=== PATIENT | female | born 1950 | race Caucasian/White ===

== ENCOUNTER 2018-07-01 08:19 | Observation (INO) ==
[2018-07-01] MEDS ORDERED: Chlorhexidine Gluconate 2% 1 Pack (2 Cloths) TOPICAL SCH (08:45)
[2018-07-01] MEDS ORDERED: Metoprolol Tartrate 25 MG Tablet PO SCH (08:45)
[2018-07-01] MEDS ORDERED: Sodium Chlor 0.9% Inj 500 ML IV.SIG SCH (09:00)
[2018-07-01] MEDS ORDERED: Heparin - SQ 10,000 UNITS/ML Vial SQ ONE (09:00)
[2018-07-01] MEDS ORDERED: Lidocaine 1%/Epinephrine 1:100,000 Inj 50 ML Vial ONE (09:35)
[2018-07-01] MEDS ORDERED: Phenylephrine/NS 1000 MCG/10ML Syringe IV.PUSH ONE (12:00)
[2018-07-01] MEDS ORDERED: Neostigmine Inj 5 MG/5 ML Syringe IV.PUSH ONE (12:00)
[2018-07-01] MEDS ORDERED: Lidocaine PF 1% Inj 5 ML Syringe INFILTRATN ONE (12:00)
[2018-07-01] MEDS ORDERED: Glycopyrrolate Inj 1 MG/5 ML Syringe IV.PUSH ONE (12:00)
[2018-07-01] MEDS ORDERED: Sugammadex Inj 200 MG/2 ML Vial IV.PUSH ONE (12:51)
[2018-07-01] MEDS ORDERED: fentaNYL Citrate Inj 100 MCG/2 ML Ampul ONE ×2 (12:51→17:08)
[2018-07-01] MEDS ORDERED: Famotidine PF Inj 20 MG/2 ML Vial ONE (12:51)
[2018-07-01] MEDS ORDERED: LORazepam 0.5 MG Tablet PO PRN (16:48)
[2018-07-01] MEDS ORDERED: Dextrose 50% in Water 50 ML Vial IV.PUSH PRN (16:57)
[2018-07-01] MEDS ORDERED: KCL 20 mEq/D5W/NaCl 0.45% Inj 1,000 ML ONE (17:13)
[2018-07-01] MEDS: KCL 20 mEq/D5W/NaCl 0.45% Inj 1,000 ML IV.CONT SCH (17:55)
[2018-07-01] MEDS: Insulin NovoLIN Regular Correctional Sugar Inj SQ SCH ×2 (18:46→23:04)
[2018-07-01] MEDS: Ketorolac Inj 30 MG/ML (IVP) Vial IV.PUSH SCH (22:58)
[2018-07-02 05:14] VITALS: RESP 18
[2018-07-02] MEDS: Ketorolac Inj 30 MG/ML (IVP) Vial IV.PUSH SCH (05:20)
[2018-07-02] MEDS: KCL 20 mEq/D5W/NaCl 0.45% Inj 1,000 ML IV.CONT SCH (05:21)
[2018-07-02] MEDS: Insulin NovoLIN Regular Correctional Sugar Inj SQ SCH (05:24)
[2018-07-02 07:45] LABS: Hematocrit 45.3 % (35.0-46.0); Hemoglobin 15.5 gm/dL (11.6-15.3); Lymph # (Auto) 0.7 th/mm3 (1.0-4.8); Lymph % (Auto) 7.3 % (9.0-44.0); Mean Corpuscular HGB Conc 34.3 % (32.0-36.0); Mean Corpuscular Hemoglobin 30.1 pg (27.0-34.0); Mean Corpuscular Volume 87.8 fL (80.0-100.0); Mean Platelet Volume 9.2 fL (7.0-11.0); Mono # (Auto) 0.6 th/mm3 (0.0-0.9); Mono % (Auto) 5.6 % (0.0-8.0); Neut # (Auto) 8.8 th/mm3 (1.8-7.7); Neut % (Auto) 87.1 % (16.0-70.0); Platelet Count 158 th/mm3 (150-450); Red Blood Count 5.15 mil/mm3 (4.00-5.30); Red Cell Distribution Width 14.3 % (11.6-17.2); White Blood Count 10.1 th/mm3 (4.0-11.0)
--- NOTE | 2018-07-02 07:55 | MP ---
cc: Fatoumata Yusuf MD, Patricia I MD Milo, Heraldo DATE OF OPERATION: 07/01/2018 PREOPERATIVE DIAGNOSES: 1. Postmenopausal bleeding. 2. Thickened endometrial stripe. 3. Atypical cells suspicious for malignancy. POSTOPERATIVE DIAGNOSES: 1. Postmenopausal bleeding. 2. Thickened endometrial stripe. 3. Atypical cells suspicious for malignancy. 4. Bilateral enlarged pelvic lymph nodes. PROCEDURE: Robotic-assisted laparoscopic hysterectomy, bilateral salpingo-oophorectomy, bilateral pelvic excisional lymph node biopsies. SURGEON: Fatoumata Yusuf MD. RIGGING SLINGER: Shelly junior administrative assistant. ANESTHESIA: General endotracheal anesthesia. ESTIMATED BLOOD LOSS: 200 mL. URINE OUTPUT: 200 mL. IV FLUIDS: 2000 mL. HISTORY: A 68-year-old female with postmenopausal bleeding of uncertain duration, found on imaging to have a prominent uterus with a thickened endometrial stripe. Biopsy showed highly atypical cells suspicious for malignancy arising from the endometrium. A Pap smear was normal. She was counseled regarding these findings and was in favor of definitive hysterectomy. She is seen again in the preoperative holding area where the findings are again discussed. Recommendations are reviewed. She expressed good understanding and would like to move forward with surgery. FINDINGS: The uterus was sounded to 9 cm, was symmetrically slightly prominent, grossly suggestive of adenomyosis, possible leiomyomas. The tubes were status post tubal ligation. The ovaries grossly appeared normal. On each side in the pelvis, there was a very prominent lymph node approximately 3 cm in size overlying the external iliac artery and vein on the left. Similarly, approximately 3 cm isolated enlarged lymph node overlying the iliac veins on the right side. The remainder of the lymphatics were visibly and palpably normal. In the pelvis, no overtly enlarged lymphatics in the paraaortic region. The uterus, once removed, showed low-grade tumor. It was uncertain if there was any myometrial invasion. In discussion with Dr. Ragland in pathology, she felt that if it were invasive it may just be a couple of millimeters, certainly less than fci in the myometrium and less than 1/3 of the myometrium and on final pathology analysis would determine whether or not there is actually any invasion at all. There is no cervical extension. DESCRIPTION OF PROCEDURE: She was taken to the operating room and placed in dorsal lithotomy position, after general endotracheal anesthesia was administered. A timeout was undertaken. She was identified by site recognition and hospital ID bracelet and the proposed procedure was reviewed and confirmed. She was carefully positioned in padded Young stirrups. Her arms were padded and secured to the sides. She was further secured to the operating table with egg crate padding and tape in a cross chest [id number] fashion. All sites noted to be properly aligned with no malalignment or pressure points. She was prepped and draped in usual sterile fashion and placed in lithotomy position. The cervix grasped. Uterine cavity sounded. Cervix dilated. Standard VCare manipulator inserted and secured in usual fashion. Ovalle catheter placed in the bladder. She was turned to the low lithotomy position. Change of sterile gloves was undertaken and we confirmed that an orogastric tube in the stomach on suction. With manual elevation of the abdominal wall and direct laparoscopic visualization, 5 mm cannula introduced into the left upper quadrant. Carbon dioxide gas was insufflated and an atraumatic entry was confirmed. Under direct laparoscopic visualization, a 12 mm cannula placed in the midline of the umbilicus, 8 mm cannula was placed in right upper quadrant and left lateral quadrant. The original 5 mm cannula exchanged for an 8 mm cannula. She was placed in Trendelenburg position. Peritoneal washings were obtained for cytology. The anatomy was surveyed with findings as described above. There was no evidence of peritoneal implants. The small bowel was folded back on its mesenteric root and 3 Ray-Charlotte sponges were placed around the root of the small bowel mesentery to hold it in position. The robotic system was brought into the operative field, attached in the usual fashion. Monopolar scissors, fenestrated bipolar forceps, and ProGrasp manipulators were placed in arms #1, 2, and 3 respectively and I took my place at the surgeon's console. The right round ligament was isolated, cauterized, transected. The anterior and posterior leafs of the broad ligament were opened. The right ureter was identified. The right infundibulopelvic ligament was isolated. The intervening peritoneum was opened. The infundibulopelvic ligament was isolated to the level of the pelvic brim where it was cauterized and transected. Posterior peritoneum opened along the right side of the uterus and cervix. The right vesicouterine peritoneum dissected off the lower uterine segment and cervix. The right uterine vessels were skeletonized and some bleeding was encountered, which was suppressed with cautery to the uterine vessel and then a Ray-Charlotte was placed for pressure and attention was directed toward the left side. The left round ligament was isolated, cauterized ,and transected. The anterior and posterior leaves of the broad ligament were opened. Adhesions were taken down to mobilize the colon, which was attached to the left pelvic sidewall. The left ureter was identified. The left infundibulopelvic ligament was isolated. The intervening peritoneum was opened. The infundibulopelvic ligament was isolated to the level of the pelvic brim where it was cauterized and transected. Posterior peritoneum opened along the left side of the uterus and cervix and the left vesicouterine peritoneum was dissected off the lower uterine segment and cervix and left uterine vessels were skeletonized. Uterine vessels were now cauterized and transected as were the cardinal, paracervical, and uterosacral ligaments thereby freeing the attachments along the left side of the uterus and cervix. Attention was redirected toward the right side. Pack was removed. Bleeding had ceased. The uterine vessels were further cauterized and transected as were the cardinal, paracervical, and uterosacral ligaments thereby freeing the attachments along the right side of the uterus and cervix. Circumferential colpotomy was performed the cervix from the upper vagina. The specimen was withdrawn transvaginally which included uterus, cervix, bilateral tubes and ovaries. A pneumo-occluder balloon was placed in the vagina to maintain pneumoperitoneum. Instruments 1 and 3 exchanged for needle drivers as a #0 Vicryl suture was introduced. Vaginal cuff was closed starting at the left corner with full-thickness closure, incorporating the posterior peritoneum and uterosacral ligament tied via instrument tie. The closure was held on countertraction as a running full thickness continuous closure was carried across the vaginal apex to the contralateral corner, were it was similarly fixed, secured, and tied via instrument tie. The needle was cut and removed. Prominent lymph node on each side of the pelvis were noted that clearly looked abnormal. Dissection was first started on the left side where the left vesicle and obturator spaces were opened. The single prominent lymph node (or conglomerated group of lymph nodes) were removed with bipolar cautery and sharp dissection circumferentially and this lymph node was placed on a Ray-Charlotte sponge in the right pericolic gutter for later retrieval. The remainder of the lymphatic basin was inspected and with no other abnormality detected. Attention was directed toward the right side were similarly overlying the external iliac artery and vein was a prominent lymph node or group of lymph nodes. The paravesical and obturator spaces were opened. Bipolar cautery and sharp dissection was used to circumferentially remove these lymph nodes which were placed in the right pericolic gutter for later retrieval. The remainder of the lymphatic basin was inspected and palpated. No other abnormalities detected. The periaortic region was inspected with no abnormalities detected. The preliminary pathology came back showing a low-grade tumor that had either minimal myometrial invasion or absent myometrial invasion such that the markedly abnormal appearing lymph nodes are of uncertain etiology, could be chronic reactive in nature. Nevertheless, they were markedly abnormal and required removal, but it was felt that further lymphadenectomy would be associated with morbidity that exceeded benefit giving the preliminary pathology findings. The integrity of the bladder was confirmed by filling the bladder with saline dyed with methylene blue. It distended nicely under pressure. There were no thin areas. Certainly no extravasation of the dye. There was a good margin between the bladder edge and the vaginal cuff suture line. Good peristalsis of ureters bilaterally. The neurovascular structures were intact in the pelvic sidewalls and good hemostasis. The pelvis was thoroughly irrigated. To assist and continued hemostasis, hemostatic Man powder was placed across the vaginal cuff and pelvic lymph node dissection bed. It was felt that all reasonable surgical objectives had been completed. The robotic instruments were removed. The robotic system was disengaged from the operative field. I reentered the bedside under sterile condition. An EndoCatch bag was used to capture the lymph nodes which were into right and left for permanent histopathologic analysis. Next, each of the 3 Ray-Charlotte sponges that were placed in the peritoneal cavity were isolated. They were removed individually through the 12 mm cannula, inspected, and noted to be removed in their entirety. Inspection of the peritoneal cavity confirmed no remaining foreign objects. Preliminary counts were correct. The 12 mm fascial defect was closed with #0 Vicryl sutures interrupted using a needle fascial closure apparatus. The remainder of the cannulas were withdrawn. Carbon dioxide gas was removed from the peritoneal cavity. Then 3-0 Vicryl subcutaneous, 3-0 Vicryl subcuticular, and Steri-Strips were used to close these incisions. She was returned to dorsal lithotomy position. Pelvic exam confirmed the vaginal cuff was well supported and hemostatic. There were no vaginal lacerations. No remaining foreign objects in the vagina and the remainder of the Man hemostatic powder was placed across the vaginal cuff. Final counts were correct. She was returned to dorsal supine position and was pending reversal of anesthesia, when I left the operating room to precede her to the postanesthesia care unit. MD NAYELI Kitchen/faina , 06:55 AM , 07:13 AM
--- NOTE | 2018-07-02 07:58 | MD ---
cc: Fatoumata Yusuf MD, Patricia I MD Milo, Heraldo DATE OF DISCHARGE: 07/02/2018 PROCEDURE: 07/01/2018, robotic-assisted laparoscopic hysterectomy, bilateral salpingo-oophorectomy, bilateral excisional pelvic lymph node biopsies. HOSPITAL COURSE: She did well in the early postop period,remained hemodynamically stable, tolerating oral intake. Ovalle catheter removed pending voiding. In's and out's are 3650/[id number]. Labs are pending. PHYSICAL EXAMINATION: VITAL SIGNS: Afebrile, pulse 79-98, respirations 16-18, blood pressure 124-144/70-85, pulse 89-104, pulse oxygen saturation greater than or equal to 92% while asleep, 93% while awake. GENERAL: Somnolent, but alert. LUNGS: Clear but there is some mild basilar rales. CARDIOVASCULAR: Regular rate and rhythm. ABDOMEN: Soft. Incision clean and dry. GYNECOLOGIC: No bleeding. EXTREMITIES: Nontender. ASSESSMENT: Postoperative day number 1, doing well in the early postoperative period. Findings at the time of surgery and preliminary pathology discussed. Activities restrictions reviewed. Questions were asked and answered. She expressed good understanding and agreed. PLAN: Anticipate she will meet criteria for discharge to home today. Our office number is provided. She is to contact our office should she have any questions or problems and to schedule a followup in 2 weeks. She is to resume prior medication. She will have a prescription for Percocet. She expressed good understanding. MD NAYELI Kitchen/faina , 06:42 AM , 06:48 AM
[2018-07-02 08:15] LABS: Calcium 8.1 mg/dL (8.5-10.1); Carbon Dioxide 26.7 meq/L (21.0-32.0); Potassium 3.8 meq/L (3.5-5.1)
[2018-07-02 09:37] VITALS: BP 134/74; PULSE 72; TEMP 97.9; O2SAT 94
== END 2018-07-02 10:55 | disposition home or self-care (01) ==
LOC: HSDC 08:19 → HCIN 08:19
PROVIDERS: ADMIT Obstetrics & Gynecology Gynecologic Oncology; ATTEND Obstetrics & Gynecology Gynecologic Oncology